=== PATIENT | female | born 1980 | race American Indian/Alaskan Native ===

== ENCOUNTER 2021-09-06 14:21 | Emergency (ER) | payer MEDICAID ==
--- NOTE | 2021-09-06 16:37 | Emergency Department Report ---
ED General Adult HPI - General Chief complaint: Skin/Abscess/Foreign Body Stated complaint: CP/BUMP ON BREAST Time Seen by Provider: 09/06/21 16:12 Source: patient Mode of arrival: Ambulatory Limitations: No Limitations - History of Present Illness Initial comments: Patient is 41 years old female with no significant past medical history. Patient presented with right breast lump for approximately 1 month now. Patient stated that the lump disappeared for few days and it came back again. Patient described as part of the lump is not tender however the other part is tender to palpation. Patient denied any fever or chills. She also denied any other lump. No other complaint. Patient stated that her family history included cancer but not sure if expressed or not. -: month(s) Severity scale (0 -10): 6 - Related Data Home Medications Medication Instructions Recorded Confirmed Last Taken No Known Home Medications [No 09/06/21 09/06/21 Unknown Reported Home Medications] Allergies Allergy/AdvReac Type Severity Reaction Status Date / Time No Known Allergies Allergy Verified 09/06/21 16:03 ED Review of Systems ROS: Stated complaint: CP/BUMP ON BREAST Other details as noted in HPI Comment: All other systems reviewed and negative Constitutional: denies: chills, fever Respiratory: denies: cough, shortness of breath, SOB with exertion, SOB at rest Cardiovascular: denies: chest pain, palpitations Gastrointestinal: denies: abdominal pain, nausea, vomiting, diarrhea, constipation, hematemesis, melena, hematochezia Musculoskeletal: denies: back pain Skin: denies: rash, lesions, change in color, change in hair/nails Neurological: denies: headache, weakness, numbness, paresthesias, confusion ED Past Medical Hx - Social History Smoking Status: Never Smoker Substance Use Type: None - Medications Home Medications: Home Medications Medication Instructions Recorded Confirmed Last Taken Type No Known Home Medications [No 09/06/21 09/06/21 Unknown History Reported Home Medications] ED Physical Exam - General Limitations: No Limitations General appearance: alert, in no apparent distress - Head Head exam: Present: atraumatic, normocephalic, normal inspection - Eye Eye exam: Present: normal appearance, PERRL - ENT ENT exam: Present: normal exam, normal orophraynx, mucous membranes moist - Neck Neck exam: Present: normal inspection, full ROM. Absent: tenderness, mening ismus - Respiratory Respiratory exam: Present: normal lung sounds bilaterally, other (Right breast showed 4 x 4cm lump, nontender to palpation, movable. There is another small more superficial lump was tender to palpation and redness.). Absent: respiratory distress, wheezes, rales, rhonchi - Cardiovascular Cardiovascular Exam: Present: regular rate, normal rhythm, normal heart sounds - GI/Abdominal GI/Abdominal exam: Present: soft, normal bowel sounds. Absent: distended, tend erness, guarding, rebound, rigid, organomegaly, mass, bruit, pulsatile mass, hernia - Extremities Exam Extremities exam: Present: normal inspection, full ROM, normal capillary refill - Back Exam Back exam: Present: normal inspection, full ROM. Absent: CVA tenderness (R), CVA tenderness (L) - Neurological Exam Neurological exam: Present: alert, oriented X3, CN II-XII intact, normal gait, reflexes normal - Psychiatric Psychiatric exam: Present: normal mood - Skin Skin exam: Present: warm ED Course Vital Signs 09/06/21 09/06/21 09/06/21 14:28 16:00 16:01 Temperature 97.9 F 97.6 F Pulse Rate 82 87 Respiratory 18 20 Rate Blood Pressure 131/69 Blood Pressure 123/78 [Right] O2 Sat by Pulse 98 99 100 Oximetry ED Medical Decision Making - Medical Decision Making Patient is 41 years old female with no significant past medical history. Patient presented with right breast lump for approximately 1 month now. Patient stated that the lump disappeared for few days and it came back again. Patient described as part of the lump is not tender however the other part is tender to palpation. Patient denied any fever or chills. She also denied any other lump. No other complaint. Patient stated that her family history included cancer but not sure if expressed or not. On examination right breast mass concerning for breast cancer. I strongly confirmed this to the patient that this is could be a cancer and she need to follow-up with a breast surgeon in the next 2 to 3 days for further management. Part of the mass is showing evidence of infection. I will start patient on Keflex. I gave patient Dr. Schmidt, surgeon on-call to follow-up with. Patient advised to return to the ER if he develop any new symptoms. Critical care attestation.: If time is entered above; I have spent that time in minutes in the direct care o f this critically ill patient, excluding procedure time. ED Disposition Clinical Impression: Breast mass in female, Mastitis Disposition: 01 HOME / SELF CARE / HOMELESS Is pt being admited?: No Condition: Stable Instructions: Breast Cancer, Female, Mastitis Referrals: SHIMA SCHMIDT DO [Staff Physician] - 3-5 Days
[2021-09-06 16:53] VITALS: BP 141/86
== END 2021-09-06 16:52 | disposition home or self-care (01) ==
LOC: ED 14:21
DX: N61.0 Mastitis without abscess (principal); N63.10 Unspecified lump in the right breast, unspecified quadrant
CPT/HCPCS: 99282

== ENCOUNTER 2021-10-16 10:47 | Day surgery (SDC) | payer MEDICAID ==
[~2021-10-16 10:47] MED LIST: ceFAZolin/STERILE WATER 2 GM/20 ML SYRINGE IV NR
[2021-10-16] MEDS ORDERED: LACTATED RINGERS 1,000 ML ONE (11:34)
[2021-10-16] MEDS ORDERED: MAGNESIUM OXIDE 400 MG TAB PO ONE (11:53)
[2021-10-16] MEDS ORDERED: ACETAMINOPHEN 500 MG TAB PO ONE (11:53)
[2021-10-16] MEDS ORDERED: CELECOXIB 200 MG CAP ONE (11:54)
[2021-10-16] MEDS ORDERED: HYDROmorphone 1 MG/1 ML INJ IV PRN ×2 (11:54)
[2021-10-16] MEDS ORDERED: ONDANSETRON 4 MG/2 ML INJ IV PRN (11:54)
[2021-10-16] MEDS ORDERED: MIDAZOLAM 2 MG/2 ML INJ ONE (11:55)
--- NOTE | 2021-10-16 11:55 | Anesthesia Consultation ---
Anesthesia Consult and Med Hx Date of service: 10/16/21 - Airway Anesthetic Teeth Evaluation: Dentures, Edentulous ROM Head & Neck: Adequate Mental/Hyoid Distance: Adequate Mallampati Class: Class II Intubation Access Assessment: Good - Pre-Operative Health Status ASA Pre-Surgery Classification: ASA2 Proposed Anesthetic Plan: General - Pulmonary Hx Smoking: Yes (STOPPED SMOKING 09/30/21) - Central Nervous System Hx Psychiatric Problems: No - Gastrointestinal Hx Gastroesophageal Reflux Disease: No - Hematic Hx Sickle Cell Disease: No - Other Systems Hx Alcohol Use: Yes (WINE) Hx Substance Use: Yes (SMOKES MARIJUANA) Hx Cancer: No
--- NOTE | 2021-10-16 11:55 | Anesthesia Day of Surgery ---
Anesthesia Day of Surgery - Day of Surgery Patient Examined: Yes Patient H&P Reviewed: Yes Patient is NPO: Yes
[2021-10-16] MEDS ORDERED: CELECOXIB 200 MG CAP PO SCH (12:00)
[2021-10-16] MEDS ORDERED: LACTATED RINGERS 1,000 ML IV SCH (12:00)
[2021-10-16] MEDS ORDERED: MIDAZOLAM 2 MG/2 ML INJ IV NR (12:00)
[2021-10-16] MEDS ORDERED: fentaNYL 100 MCG/2 ML INJ ONE ×2 (12:10→13:19)
[2021-10-16] MEDS ORDERED: propofoL 200 MG/20 ML VIAL IV ONE ×2 (12:10→13:09)
[2021-10-16] MEDS ORDERED: LIDOCAINE MPF (2%) 20 MG/1 ML VIAL 5 ML ONE (12:10)
[2021-10-16] MEDS ORDERED: LIDOCAINE (1%) 10 MG/1 ML VIAL 20 ML MDV ONE (13:09)
[2021-10-16] MEDS ORDERED: BUPIVACAINE/PF (0.5%) 5 MG/1 ML 10 ML VIAL INFILTRATI ONE ×2 (13:09→14:02)
[2021-10-16] MEDS ORDERED: dexAMETHasone 20 MG/5 ML VIAL ONE (13:47)
[2021-10-16] MEDS ORDERED: KETOROLAC 30 MG/1 ML INJ ONE (13:47)
[2021-10-16] MEDS ORDERED: ONDANSETRON 4 MG/2 ML INJ ONE (13:47)
--- NOTE | 2021-10-16 13:51 | Short Stay Summary ---
Short Stay Documentation Date of service: 10/16/21 - History H&P: obtained from office - Allergies and Medications Current Medications: Allergies No Known Allergies Allergy (Verified 10/14/21 13:17) Home Medications Medication Instructions Recorded Confirmed Last Taken Type No Known Home Medications [No 10/14/21 10/14/21 Unknown History Reported Home Medications] Active Medications Cefazolin Sodium (Cefazolin/Sterile Water 2 Gm/20 Ml Syringe) 2 gm IV PREOP NR Stop: 10/16/21 23:59 Celecoxib (Celecoxib 200 Mg Cap) 400 mg PO PREOP RAJINDER Last Admin: 10/16/21 12:05 Dose: 400 mg Hydromorphone HCl (Hydromorphone 1 Mg/1 Ml Inj) 0.25 mg IV Q10MIN PRN PRN Reason: Pain, Moderate (4-6) Stop: 10/17/21 11:53 Hydromorphone HCl (Hydromorphone 1 Mg/1 Ml Inj) 0.5 mg IV Q10MIN PRN PRN Reason: Pain , Severe (7-10) Stop: 10/17/21 11:53 Lactated Ringer's (Lactated Ringers) 1,000 mls @ 125 mls/hr IV DIRECT RAJINDER Last Admin: 10/16/21 11:30 Dose: 125 mls/hr Midazolam HCl (Midazolam 2 Mg/2 Ml Inj) 2 mg IV PREOP NR Stop: 10/16/21 23:59 Last Admin: 10/16/21 12:09 Dose: 2 mg Ondansetron HCl (Ondansetron 4 Mg/2 Ml Inj) 4 mg IV ONCE PRN PRN Reason: Nausea And Vomiting - Physical exam General appearance: no acute distress Integumentary: no rash Breasts: swelling, other (Right breast left foot cyst localized to the area under the nipple areolar complex between 12 and 3:00) Gastrointestinal: normal Extremities: no ischemia Neurological: Normal gait, Normal speech - Brief post op/procedure progress note Date of procedure: 10/16/21 Pre-op diagnosis: Right breast abscess Post-op diagnosis: same Procedure: Incision and drainage of right breast abscess with culture sensitivity and gram stain placement of drain and Farhat-Cut core biopsy of residual mass Anesthesia: KEVAN Surgeon: MAYRA GRANT Estimated blood loss: minimal Pathology: list (Core biopsy of residual mass right breast) Specimen disposition: to lab Condition: stable - Disposition Condition at discharge: Good Disposition: 01 HOME / SELF CARE / HOMELESS Short Stay Discharge Plan Diet: regular Wound: change dressing, other (Irrigate wound in the shower 3 times a day moving the drain [id number] then covered with a dry dressing and minimal tape) Follow up with: PRIMARY CARE, [Primary Care Provider] - 7 Days
--- NOTE | 2021-10-16 13:56 | Operative Report ---
Operative Report Operative Report: Date of procedure: 10/16/2021 Preop diagnosis: Complex right breast abscess Postop diagnosis: Same with residual right breast mass Procedure: Incision and drainage right breast abscess with placement of a drain and Farhat-Cut biopsy of residual mass Surgeon: Dr. Madrid Anesthesia: LMA general Estimated blood loss: 20 to 30 cc Specimen: Farhat-Cut core biopsies of right breast placed into formalin at about 1:30 PM Findings: This is a 41-year-old -[place] lady with a persisting right breast abscess. She was a smoker is trying to stop smoking. Several ultrasound-guided aspirations of the abscess were done in the office. Patient was noted to have a complex abscess with deep and superficial compon ents. She is taken to the OR and under LMA general anesthesia timeouts are completed consents on the chart. A small open area at the 3 o'clock position along the nipple areolar area is infiltrated with local anesthetic. A #15 scalpel was then used to incise this area followed by a hemostat to connect the incision to the abscess cavity. Minimal purulent drainage is encountered. A counterincisi on is made at about 12:00 on the nipple areolar complex. Copious months of saline was used to irrigate the wound. A vessel loop is used as a drain going in 1 incision of the other. After ensuring adequate drainage palpation of the breast showed there to be about a 2 and half centimeter mass has a residual in the central portion of the breast under the nipple areolar complex. A Farhat-Cut core biopsy device is used to obtain 3 cores from this palpable mass. Compression dressing is placed on this and the procedure is ended.
[2021-10-16] MEDS ORDERED: LIDOCAINE (1%) 10 MG/1 ML VIAL 20 ML MDV INFILTRATI ONE (14:03)
[2021-10-16] MEDS ORDERED: SODIUM CHLORIDE 0.9% IRR 1,500 ML BOTTLE IR ONE (14:03)
--- NOTE | 2021-10-16 14:52 | Post Anesthesia Evaluation ---
- Post Anesthesia Evaluation Patient Participated: Yes Airway Patent: Yes Stable Respiratory Function: Yes Nausea/Vomiting: No Temp > 96.8F: Yes Pain Manageable: Yes Adequeate Hydration: Yes Anesthesia Complications: No Block Receding Appropriately: Not Applicable Patient on Ventilator: No
[2021-10-16 17:11] VITALS: BP 145/78
== END 2021-10-16 15:35 | disposition home or self-care (01) ==
LOC: OR 10:47
PROVIDERS: ATTEND Surgery
DX: N61.1 Abscess of the breast and nipple (principal); N63.10 Unspecified lump in the right breast, unspecified quadrant; N64.89 Other specified disorders of breast; Z87.891 Personal history of nicotine dependence; Z72.89 Other problems related to lifestyle; Z98.890 Other specified postprocedural states; Z80.3 Family history of malignant neoplasm of breast
CPT/HCPCS: 19020; 19120; 81025; 87075; 87116; 88305; 88312; J0690; J1100; J1885; J2250; J2405; J2704; J3010; J3490; J7120